=== PATIENT | female | born 1935 | race Asian ===

== ENCOUNTER 2019-10-21 15:17 | Outpatient (CLI) | payer OTHER ==
[2019-10-21 15:30] LABS: PLATELET COUNT 282 K/uL (152-353)
== END 2019-10-21 19:04 | disposition home or self-care (01) ==
LOC: LAB 15:17
PROVIDERS: Family Medicine
DX: D64.89 Other specified anemias (principal)
CPT/HCPCS: 85027

== ENCOUNTER 2019-11-29 17:21 | Outpatient (CLI) | payer OTHER ==
[2019-11-29 17:58] LABS: PLATELET COUNT 222 K/uL (152-353)
== END 2019-11-29 19:15 | disposition home or self-care (01) ==
LOC: LABW 17:21
PROVIDERS: Family Medicine
DX: Z00.00 Encounter for general adult medical examination without abnormal findings (principal); R68.89 Other general symptoms and signs; Z79.899 Other long term (current) drug therapy
CPT/HCPCS: 85027

== ENCOUNTER 2022-04-25 15:09 | Outpatient (CLI) | payer OTHER | END 2022-04-25 19:32 | disposition home or self-care (01) | LOC: LAB 15:09 | PROVIDERS: ATTEND Family Medicine | DX: N39.0 Urinary tract infection, site not specified (principal) | CPT/HCPCS: 81002; 87077; 87086; 87088; 87186 ==